=== PATIENT | female | born 1950 | race African-American/Black ===

== ENCOUNTER 2023-12-10 12:10 | Outpatient (CLI) | payer MEDICARE | END 2023-12-10 12:11 | disposition home or self-care (01) | LOC: CSHMAMMO 12:10 | DX: Z12.31 Encounter for screening mammogram for malignant neoplasm of breast (principal); Z13.820 Encounter for screening for osteoporosis; M81.0 Age-related osteoporosis without current pathological fracture; M85.89 Other specified disorders of bone density and structure, multiple sites; Z78.0 Asymptomatic menopausal state | CPT/HCPCS: 77063; 77067; 77080 ==